=== PATIENT | female | born 1955 | race Caucasian/White ===

== ENCOUNTER → 2021-09-03 | Outpatient (CLI) | payer MEDICARE ==
--- NOTE | 2021-09-08 15:07 | MM ---
Reason for exam: additional evaluation requested from prior study. Last mammogram was performed 1 year ago. History: Patient is postmenopausal and has history of breast cancer at age 60. 2 excisional biopsies of the left breast, 2017. Lumpectomy of the left breast, 2017. Radiation therapy of the left breast, 2017. Took antineoplastic for 5 years. Physical Findings: A clinical breast exam by your physician is recommended on an annual basis and results should be correlated with mammographic findings. MG 3D Diag Mammo W/Cad KAT Bilateral CC and MLO view(s) were taken. Prior study comparison: August 25, 2020, mammogram, performed at [place]. February 21, 2020, mammogram, performed at [place]. August 22, 2019, mammogram, performed at [place]. February 15, 2019, mammogram, performed at [place]. August 18, 2018, mammogram, performed at [place]. There are scattered fibroglandular densities. Previous mammotome biopsy in the left breast. Post surgical and post therapy change left breast with surgical scar that shows increasing course calcifications. Suspected progressive fat necrosis calcifications, 6 month follow up recommended. These results were verbally communicated with the patient 09/08/21. ASSESSMENT: Probably benign, BI-RAD 3 RECOMMENDATION: Follow-up diagnostic mammogram of the left breast in 6 months.
== END | disposition home or self-care (01) ==
LOC: RADMAMWWP 14:35
PROVIDERS: ATTEND Family Medicine
DX: Z85.3 Personal history of malignant neoplasm of breast (principal)
CPT/HCPCS: 77066; G0279; 77062

== ENCOUNTER → 2022-03-10 | Outpatient (CLI) | payer MEDICARE ==
--- NOTE | 2022-03-19 10:02 | MM ---
Reason for Exam: Follow-up at short interval from prior study. Last screening mammogram was performed 6 month(s) ago. Patient History: Menarche at age 10. First Full-Term at age 17. Hysterectomy at age 48. Postmenopausal. Breast cancer, age 61. Previous chest radiation therapy at age 61. 2017, Excisional Biopsy on the Left side. 2017, Excisional Biopsy on the Left side. 2017, Lumpectomy on the Left side. 2017, Radiation Therapy on the left side. Prior Study Comparison: 02/21/2020 Screening Mammogram, [place]. 08/25/2020 Screening Mammogram, [place]. 09/03/2021 Bilateral Diagnostic Mammogram, [facility]. Tissue Density: Left: There are scattered fibroglandular densities. Findings: Analyzed By CAD. Stable distortion with dystrophic calcification in the left breast central aspect. No suspicious new mass or worrisome group of microcalcification in the left breast. Overall Assessment: Benign, BI-RAD 2 Management: Return to routine follow-up (next follow-up: 09/03/2022 for Diagnostic Mammogram) Back on bilateral annual schedule. PACS downtime. Electronically signed and approved by: Lokesh Bravo M.D.
== END | disposition home or self-care (01) ==
LOC: RADMAMWWP 09:06
PROVIDERS: ATTEND Family Medicine
DX: Z85.3 Personal history of malignant neoplasm of breast (principal)
CPT/HCPCS: 77065

== ENCOUNTER → 2022-03-16 | Outpatient (CLI) | payer MEDICARE ==
--- NOTE | 2022-03-16 15:37 | P.SLEEP ---
History of Present Illness H&P Date: 03/16/22 Chief Complaint: Chronic fatigue This is a 67-year-old female patient was referred to me for sleep evaluation as the patient is been experiencing chronic fatigue and some degree of sleepiness. This been going on for several years and the patient was recently discussing this with her primary care physician and she was told to undergo a sleep evaluation to make sure there is no underlying sleep disorder contributing to her chronic fatigue and sleepiness. The patient reports that she snores. No reported witnessed apneas. Denies waking up in the middle of choking and gasping for air. No restlessness in lower extremities. No grinding of the teeth. No sleepwalking and no sleep talking. No anxiety or panic attacks. No nocturnal shortness of breath or heartburn or chest pain. The patient reports that she wakes up tired and she has difficulties in maintaining herself awake during the day. She is going to bed at around 11 PM and getting out of bed at around 8 AM in the morning. She has no major comorbidities pain no previous psychiatric history. She does not take any naps during the day. Her weight has remained stable over the years and there is no recent weight gain. No sleep paralysis. No hallucinations. No cataplexy. Her current Erie score the 13th she does not fall sleep was driving her car. Review of Systems Constitutional: Reports daytime sleepiness, Reports fatigue Eyes: denies as per HPI, denies blurred vision, denies bulging eye, denies decreased vision, denies diplopia, denies discharge, denies dry eye, denies irritation, denies itching, denies pain, denies photophobia, denies loss of peripheral vision, denies loss of vision, denies tunnel vision/blind spots Ears: deny: decreased hearing, ear discharge, earache, tinnitus Ears, nose, mouth and throat: Denies headache, Denies sore throat Breasts: absent: as per HPI, change in shape, gynecomastia, masses, nipple discharge, pain, skin changes, swelling Cardiovascular: Denies chest pain, Denies shortness of breath Respiratory: Reports snoring Gastrointestinal: Reports as per HPI Genitourinary: Reports as per HPI Menstruation: Reports as per HPI Musculoskeletal: Reports as per HPI Musculoskeletal: absent: ankle pain, ankle stiffness, ankle swelling Integumentary: Reports as per HPI Neurological: Reports as per HPI Psychiatric: Reports as per HPI Endocrine: Reports as per HPI Hematologic/Lymphatic: Reports as per HPI Allergic/Immunologic: Reports as per HPI Past Medical History Past Medical History: Cancer (History of breast cancer, previous lumpectomy and radiation therapy. ) Additional Past Medical History / Comment(s): History of cerebral aneurysm post- coiling Additional Past Surgical History / Comment(s): Coiling of a cerebral aneurysm, lumpectomy for breast cancer left-sided Physical Exam BP is 116/76, pulse is 88, respirations 16, temperature 96.3, oxygen saturation 96% on room air, Erie scores a 13. Weight is 160 pounds in the body mass index is 27.8. The patient appeared well nourished and normally developed. Vital signs as documented. Head exam is unremarkable. No scleral icterus or corneal arcus noted. Neck is without jugular venous distension, thyromegaly, or carotid bruits. Carotid upstrokes are brisk bilaterally. The patient is a Mallampati class IV.. Lungs are clear to auscultation and percussion. Cardiac exam reveals the PMI to be normally sized and situated. Rhythm is regular. First and second heart sounds normal. No murmurs, rubs or gallops. Abdominal exam reveals normal bowel sounds, no masses, no organomegaly and no aortic enlargement. Extremities are nonedematous and both femoral and pedal pulses are normal.Examination of the skin revealed no evidence of significant rashes, suspicious appearing nevi or other concerning lesions.Neurologically, the patient is awake and alert and the patient does not have any focal neurological deficit. Cranial nerves are essentially intact. Assessment and Plan Plan: Chronic fatigue/sleepiness, Erie score of 13, rule out underlying sleep breathing disorder Hypertension Breast cancer to previous lumpectomy on the left followed by radiation therapy, currently disease-free Plan Proceed with a screening polysomnogram Sleep hygiene measures are in generally good No signs of any insufficiency syndrome No other major comorbid conditions We'll investigate this patient's symptoms by undergoing a polysomnogram and further recommendations to follow based on those results. Sleep Note - Sleep Note Sleep Note: Temperature: Pulse Rate: Respiratory Rate: Blood Pressure: SpO2: Height: Weight: BMI: Neck Circumference:
== END | disposition home or self-care (01) ==
LOC: SLEEP 14:13
PROVIDERS: ATTEND Internal Medicine Critical Care Medicine
DX: R53.83 Other fatigue (principal); I10 Essential (primary) hypertension
CPT/HCPCS: 99211